=== PATIENT | female | born 1980 | race African-American/Black ===

== ENCOUNTER 2022-08-24 15:37 | Emergency (ER) | payer SELFPAY ==
[2022-08-24] MEDS ORDERED: NA CHLORIDE 0.9% 1,000 ML ONE (16:09)
[2022-08-24] MEDS ORDERED: DIAZEPAM 5 MG TABLET ONE (16:09)
[2022-08-24] MEDS ORDERED: MECLIZINE HCL 12.5 MG TAB ONE (16:09)
[2022-08-24 16:38] LABS: Absolute Lymphocytes (CBC) 1.9 K/uL (0.7-4.9); Hematocrit 30.4 % (36.0-45.0); Lymphocytes % 24.9 % (15.3-44.8); MCV 81.7 fL (80-100); MPV 10.1 fL (7.6-11.3); RBC Red Blood Cell Count 3.72 M/uL (3.86-4.86)
[2022-08-24 16:43] LABS: Protime INR 0.97
[2022-08-24 16:47] LABS: Barbiturates NEGATIVE (NEGATIVE); Benzodiazepines NEGATIVE (NEGATIVE); Cocaine NEGATIVE (NEGATIVE); METHAMPHETAM NEGATIVE (NEGATIVE); Methadone NEGATIVE (NEGATIVE); Opiates NEGATIVE (NEGATIVE); Phencyclidine NEGATIVE (NEGATIVE); THC Cannibis NEGATIVE (NEGATIVE)
[2022-08-24 16:58] LABS: Specific Gravity > 1.030 (1.005-1.030); Urine Bacteria None Seen /HPF (<20); Urine Bilirubin NEGATIVE (Negative); Urine Blood 3+ (OVER) (Negative); Urine Clarity Clear (Clear); Urine Color Yellow (Yellow); Urine Crystals Unidentified Few /HPF (None Seen); Urine Glucose NEGATIVE (Negative); Urine Mucus Slight /HPF (None Seen); Urine Protein 1+ (Negative); Urine RBC >50 /HPF (None Seen); Urine Urobilinogen 1+ (Normal)
--- NOTE | 2022-08-24 17:12 | RAD REPORT ---
EXAM DESCRIPTION: CT - Head Brain Wo Cont - 08/24/2022 5:05 pm CLINICAL HISTORY: DIZZINESS COMPARISON: No comparisons TECHNIQUE: All CT scans are performed using dose optimization technique as appropriate and may inclu de automated exposure control or mA/KV adjustment according to patient size. FINDINGS: No intracranial hemorrhage, hydrocephalus or extra-axial fluid collection.No areas of brai n edema or evidence of midline shift. The paranasal sinuses and mastoids are clear. The calvarium is intact. IMPRESSION: No acute intracranial abnormality.
[2022-08-24 17:14] LABS: Albumin 3.2 g/dL (3.4-5.0); Bilirubin Direct 0.2 mg/dL (0-0.2); Bilirubin Total 0.7 mg/dL (0.2-1.0); Potassium 3.1 mEq/L (3.5-5.1); Protein, Total 7.5 g/dL (6.4-8.2); Troponin High Sensitivity 9.4 pg/mL (<58.9)
--- NOTE | 2022-08-24 17:27 | ER ---
Nurse's Notes [facility] Name: Scott Lozano Age: 42 yrs Sex: Female : 1980 Arrival Date: 08/24/2022 Time: 15:41 Bed 6 Private MD: Diagnosis: Dizziness and giddiness Presentation: 08/24 15:43 Chief complaint: Patient states: "I have really bad iron issues", hx of Anemia. Pt aa5 states "I just feel dizzy, lightheaded and I feel like I am having trouble focusing". 15:43 Coronavirus screen: At this time, the client does not indicate any symptoms associated aa5 with coronavirus-19. Ebola Screen: Patient denies travel to an Ebola-affected area in the 21 days before illness onset. Initial Sepsis Screen: Does the patient meet any 2 criteria? No. Patient's initial sepsis screen is negative. Does the patient have a suspected source of infection? No. Patient's initial sepsis screen is negative. Risk Assessment: Do you want to hurt yourself or someone else? Patient reports no desire to harm self or others. Onset of symptoms was August 2022. 15:43 Acuity: ANDER 3 aa5 15:43 Method Of Arrival: Ambulatory aa5 Historical: - Allergies: 15:47 No Known Allergies; aa5 - PMHx: 15:47 Anemia; aa5 - Immunization history:: Adult Immunizations unknown. - Social history:: Smoking status: Patient denies any tobacco usage or history of. Screenin:00 [facility] ED Fall Risk Assessment (Adult) History of falling in the last 3 months, jl7 including since admission No falls in past 3 months (0 pts) Confusion or Disorientation No (0 pts) Intoxicated or Sedated No (0 pts) Impaired Gait No (0 pts) Mobility Assist Device Used No (0 pt) Altered Elimination No (0 pt) Score/Fall Risk Level 0 - 2 = Low Risk Oriented to surroundings, Maintained a safe environment. Abuse screen: Denies threats or abuse. Denies injuries from another. Nutritional screening: No deficits noted. Tuberculosis screening: No symptoms or risk factors identified. Assessment: 16:00 General: Appears in no apparent distress. uncomfortable, Behavior is cooperative, jl7 anxious. Pain: Denies pain. Neuro: Level of Consciousness is awake, alert, obeys commands, Oriented to person, place, time, situation, Reports blurred vision dizziness. Cardiovascular: Patient's skin is warm and dry. Respiratory: Airway is patent Respiratory effort is even, unlabored, Respiratory pattern is regular, symmetrical. Derm: Skin is pink, warm \\T\\ dry. 17:24 Reassessment: Dr. Melton at bedside discussing results and POC. jl7 Vital Signs: 15:43 BP 133 / 92; Pulse 103; Resp 20 S; Temp 98.3(TE); Pulse Ox 100% on R/A; Weight 61.23 kg aa5 (R); Height 5 ft. 8 in. (R); 16:45 BP 120 / 78; Pulse 81; Resp 15; Pulse Ox 100% ; jl7 17:24 BP 108 / 73; Pulse 80; Resp 15; Pulse Ox 100% ; jl7 15:43 Body Mass Index 20.53 (61.23 kg, 172.72 cm) aa5 ED Course: 15:41 Patient arrived in ED. mr 15:41 Daniel Melton MD is Attending Physician. jr11 15:44 Arm band placed on. aa5 15:47 Triage completed. aa5 15:56 Willis Jenkins, RN is Primary Nurse. bp 16:00 Patient has correct armband on for positive identification. Placed in gown. Bed in low jl7 position. Call light in reach. Side rails up X2. Client placed on continuous cardiac and pulse oximetry monitoring. NIBP monitoring applied. Warm blanket given. 16:00 Initial lab(s) drawn, by sc, sent to lab. Urine collected: clean catch specimen, clear. jl7 Inserted saline lock: 22 gauge in left antecubital area, using aseptic technique. Blood collected. 16:01 Brenda Hyde, RAO is Primary Nurse. jl7 17:07 CT Head Brain wo Cont In Process Unspecified. EDMS 17:25 Pascale Limon MD is Referral Physician. jr11 18:18 No provider procedures requiring assistance completed. IV discontinued, intact, jl7 bleeding controlled, No redness/swelling at site. Pressure dressing applied. Administered Medications: 16:31 Drug: NS 0.9% IV 1000 ml Route: IV; Rate: 1000 ml; Site: left antecubital; jl7 17:45 Follow up: Response: No adverse reaction; IV Status: Completed infusion; IV Intake: jl7 500ml 16:32 Drug: Diazepam PO 2.5 mg Route: PO; jl7 17:00 Follow up: Response: No adverse reaction jl7 16:32 Drug: Meclizine PO 25 mg Route: PO; jl7 17:00 Follow up: Response: No adverse reaction jl7 Medication: 17:24 VIS not applicable for this client. jl7 Intake: 17:45 IV: 500ml; Total: 500ml. jl7 Outcome: 17:26 Discharge ordered by MD. giraldo 18:18 Discharged to home via wheelchair. jl7 18:18 Condition: stable 18:18 Discharge instructions given to patient, Instructed on discharge instructions, follow up and referral plans. medication usage, Demonstrated understanding of instructions, follow-up care, medications, Prescriptions given X 1. 18:18 Patient left the ED. jl7 Signatures: Dispatcher [employer] [facility] Jessica StanleyRadha, RN RN aa5 Brenda Hyde RN RN jl7 Willis Jenkins RN RN bp Rosillo, Jose, MD MD jr11 Corrections: (The following items were deleted from the chart) 15:49 15:43 Pulse 103bpm; Resp 20bpm; Spontaneous; Pulse Ox 100% RA; aa5 aa5 15:50 15:43 BP 133 / 92; Pulse 103bpm; Resp 20bpm; Spontaneous; Pulse Ox 100% RA; Temp 98.3F aa5 Temporal; aa5
--- NOTE | 2022-08-24 17:27 | EDPHYS ---
Physician Documentation [facility] Name: Scott Lozano Age: 42 yrs Sex: Female : 1980 Arrival Date: 08/24/2022 Time: 15:41 Bed 6 Private MD: ED Physician Daniel Melton HPI: 08/24 15:54 Patient is a 42-year-old female that this morning started feeling gradually as she jr11 could not focus, sort of lightheaded dizzy, denies ataxia or any focal neurologic deficit, of note she does have a history of anemia requiring blood transfusions last one being over a year ago. Denies exertional pain, no tearing pain, does not radiate to the back, does not cross the diaphragm. No diaphoresis, no vomiting. No syncope or near-syncope. Patient states she just overall does not feel well. Denies any abdominal pain no urinary complaints, currently on her menses.. Historical: - Allergies: 15:47 No Known Allergies; aa5 - PMHx: 15:47 Anemia; aa5 - Immunization history:: Adult Immunizations unknown. - Social history:: Smoking status: Patient denies any tobacco usage or history of. ROS: 15:54 All other systems are negative. jr11 Exam: 15:54 Constitutional: This is a well developed, well nourished patient who is awake, alert, jr11 and in no acute distress. Head/Face: Normocephalic, atraumatic. Eyes: Extra-ocular motions intact. Lids and lashes normal. Conjunctiva and sclera are non-icteric and not injected. Cornea within normal limits. Periorbital areas with no swelling, redness, or edema. ENT: Nares patent. No nasal discharge, no septal abnormalities noted. Oropharynx with no redness, swelling, or masses, exudates, or evidence of obstruction, uvula midline. Mucous membranes moist. Neck: Trachea midline, no thyromegaly or masses palpated, and no cervical lymphadenopathy. Supple, full range of motion without nuchal rigidity, or vertebral point tenderness. No Meningismus. Chest/axilla: Normal chest wall appearance and motion. Nontender with no deformity. No lesions are appreciated. Cardiovascular: Regular rate and rhythm with a normal S1 and S2. No gallops, murmurs, or rubs. Normal PMI, no JVD. No pulse deficits. Respiratory: Lungs have equal breath sounds bilaterally, clear to auscultation and percussion. No rales, rhonchi or wheezes noted. No increased work of breathing, no retractions or nasal flaring. Abdomen/GI: Soft, non-tender, with normal bowel sounds. No distension or tympany. No guarding or rebound. No evidence of tenderness throughout. Back: No spinal tenderness. No costovertebral tenderness. Full range of motion. Skin: Warm, dry with normal turgor. Normal color with no rashes, no lesions, and no evidence of cellulitis. MS/ Extremity: Pulses equal, no cyanosis. Neurovascular intact. Full, normal range of motion. Neuro: Awake and alert, GCS 15, oriented to person, place, time, and situation. No gross motor or sensory deficits. Vital Signs: 15:43 BP 133 / 92; Pulse 103; Resp 20 S; Temp 98.3(TE); Pulse Ox 100% on R/A; Weight 61.23 kg aa5 (R); Height 5 ft. 8 in. (R); 16:45 BP 120 / 78; Pulse 81; Resp 15; Pulse Ox 100% ; jl7 17:24 BP 108 / 73; Pulse 80; Resp 15; Pulse Ox 100% ; jl7 15:43 Body Mass Index 20.53 (61.23 kg, 172.72 cm) aa5 MDM: 15:50 Patient medically screened. jr11 15:54 Differential diagnosis: generalized weakness, vertigo. Data reviewed: vital signs, [facility] nurses notes. 16:20 ED course: EKG interpreted by me shows normal sinus rhythm, normal axis, normal jr11 intervals, no acute ST changes patient does have PVCs.. ED course: Rhythm interpretation shows normal sinus rhythm rate of 80. 17:25 ED course: Vitals normalized, heart rate in the 80s, patient is anemic but not severely jr11 anemic, does not need a blood transfusion. ER warnings given all results explained, will follow up with primary care. 17:27 ED course: NIHSS=0 not a thrombolytic candidate . [facility] 08/24 15:52 Order name: Basic Metabolic Panel; Complete Time: 17:20 [facility] 08/24 15:52 Order name: CBC with Diff; Complete Time: 17:20 08/24 15:52 Order name: Hepatic Function; Complete Time: 17:08/24 15:52 Order name: High Sensitivity Troponin; Complete Time: 17:08/24 15:52 Order name: Protime (+inr); Complete Time: 17:08/24 15:52 Order name: Ptt, Activated; Complete Time: 17:08/24 15:52 Order name: UDS; Complete Time: 17:08/24 15:52 Order name: UAM; Complete Time: 17:08/24 15:52 Order name: Test, Urine; Complete Time: 17:08/24 16:25 Order name: CT Head Brain wo Cont; Complete Time: 17:08/24 15:52 Order name: EKG; Complete Time: 15:52 08/24 15:52 Order name: Cardiac monitoring; Complete Time: 16:08/24 15:52 Order name: EKG - Nurse/Tech; Complete Time: 16:08/24 15:52 Order name: IV Saline Lock; Complete Time: 16:08/24 15:52 Order name: Labs collected and sent; Complete Time: 16:08/24 15:52 Order name: NPO; Complete Time: 16:32 08/24 15:52 Order name: O2 Per Protocol; Complete Time: 16:08/24 15:52 Order name: O2 Sat Monitoring; Complete Time: 16:31 Administered Medications: 16:31 Drug: NS 0.9% IV 1000 ml Route: IV; Rate: 1000 ml; Site: left antecubital; jl7 17:45 Follow up: Response: No adverse reaction; IV Status: Completed infusion; IV Intake: jl7 500ml 16:32 Drug: Diazepam PO 2.5 mg Route: PO; jl7 17:00 Follow up: Response: No adverse reaction jl7 16:32 Drug: Meclizine PO 25 mg Route: PO; jl7 17:00 Follow up: Response: No adverse reaction jl7 Disposition Summary: 08/24/22 17:26 Discharge Ordered Location: Home [facility] Condition: Stable 11 Diagnosis - Dizziness and giddiness jr11 Followup: [facility] - With: Pascale Limon MD - When: 2 - 3 days - Reason: Recheck today's complaints Discharge Instructions: - Discharge Summary Sheet jr11 - Dizziness jr11 Forms: - Medication Reconciliation Form jr11 - Thank You Letter jr11 - Antibiotic Education jr11 - Prescription Opioid Use jr11 Prescriptions: - Meclizine 25 mg Oral Tablet - take 1 tablet by ORAL route every 8 hours As needed; 30 tablet; Refills: 0, jr11 Product Selection Permitted Signatures: Dispatcher [employer] EDRadha Goodson RN RN aa5 Brenda Hyde RN RN jl7 Daniel Melton MD MD jr11
[2022-08-24 19:10] VITALS: TEMP 98.3; O2SAT 100
[2022-08-24 19:13] VITALS: BP 108/73
--- NOTE | 2022-08-25 13:41 | EKG ---
Test Date: 2022-08-24 Test Time: 16:12:31 Armature Connector: CATRINA MEASUREMENT RESULTS: Intervals: Rate: 81 NV: 136 QRSD: 80 QT: 370 QTc: 429 [place]: P: 63 NV: 136 QRS: 63 T: 47 INTERPRETIVE STATEMENTS: Sinus rhythm with frequent and consecutive premature ventricular complexes No previous ECG available for comparison Electronically Signed On 08-25-22 13:38:46 CDT by Chaitanya Karimi
== END 2022-08-24 18:18 | disposition home or self-care (01) ==
LOC: ER 15:37
DX: R42 Dizziness and giddiness (principal); R53.1 Weakness
CPT/HCPCS: 36415; 70450; 80048; 80076; 80307; 81001; 81025; 84484; 85025; 85610; 85730; 93005; 96360; 99284; J7030; J8597